=== PATIENT | male | born 1990 | race African-American/Black ===

== ENCOUNTER 2020-11-04 12:21 | Emergency (ER) | payer OTHER, SELFPAY ==
--- NOTE | ~2020-11-04 | XR_ITS ---
EXAMINATION: XR HAND WRIST, RIGHT CLINICAL INFORMATION: Pain thumb. COMPARISON: None TECHNIQUE: The hand and wrist are imaged together in 3 large [id number] images. A navicular view of the wrist is also performed for a total of 4 views. FINDINGS: There is normal bony mineralization. No fracture, dislocation, destructive process. No periostitis. No gas tracking in soft tissues. There is normal ulnar variance. There is no joint narrowing or erosive change. XR/XR hand wrist RT IMPRESSION: No fracture, dislocation, or arthropathy.
[2020-11-04 13:21] VITALS: BP 113/71; PULSE 79; RESP 16; TEMP 36.9; O2SAT 99; BMI 27.4
--- NOTE | 2020-11-04 14:53 | ED_ITS ---
HPI - Extremity Problem General Chief complaint: Extremity Injury, Upper Stated complaint: work injury Time Seen by Provider: 11/04/20 16:00 Source: patient Mode of arrival: ambulatory Limitations: no limitations History of Present Illness HPI Narrative: Patient presents ED for right thumb pain. Patient states he was trying to stop 1 of his behaviors stooling some attacking another patient and he hyperextended his thumb. Patient states present has complete range of motion of thumb negative for any numbness/tingling and just complain of pain. Related Data Previous Rx's Medication Instructions Recorded naproxen 500 mg tablet 500 mg PO BID PRN #20 tab 11/04/20 Allergies Allergy/AdvReac Type Severity Reaction Status Date / Time No Known Allergies Allergy Verified 11/04/20 13:23 Review of Systems Review of Systems: Yes all other systems are reviewed and are negative Constitutional: Constitutional: Reports as per HPI and Reports no additional constitutional complaints Eyes: Eyes: Reports as per HPI and Reports no additional eye complaints ENT: Reports system reviewed and no additional complaints, except as documented and Reports as per HPI Cardiovascular: Cardiovascular: Reports as per HPI and Reports no additional cardiovascular complaints Respiratory: Respiratory: Reports as per HPI and Reports no additional respiratory complaints Gastrointestinal: Gastrointestinal: Reports as per HPI and Reports no additional gastrointestinal complaints Genitourinary: Genitourinary: Reports no additional male genitourinary complaints and Reports as per HPI Musculoskeletal: Musculoskeletal: Reports no additional musculoskeletal complaints and Reports as per HPI Comments: Right thumb pain Neurologic: Reports system reviewed and no additional complaints, except as documented and Reports as per HPI [facility] Past Medical History Medical History (Updated 11/04/20 @ 16:16 by MADDI Turner) No known health problems Social History Social History Advance Directives: Yes Advance Directives Information Provided: Yes Advance Directives on File: No Physical Exam Vital Signs: Vital Signs: Last Vital Signs Temp 98.5 F 11/04/20 13:21 Pulse 79 11/04/20 13:21 Resp 16 11/04/20 13:21 BP 113/71 11/04/20 13:21 Pulse Ox 99 11/04/20 13:21 Body Mass Index 27.4 Const: General: cooperative, healthy appearing, comfortable, no acute distress, well developed, alert and awake Orientation/consciousness: patient oriented x3 HENMT: Head: Yes normal to inspection, Yes No palpable skull fracture present, Yes normocephalic, Yes atraumatic and No abrasion Eyes: General: appearance normal, both eyes and all related structures Neck: Neck: Yes normal visual inspection, Yes full ROM, Yes no lymphadenopathy, Yes no meningeal signs, Yes trachea midline, Yes supple and No tender Chest: Chest palpation & inspection: normal inspection of the chest and normal palpation of entire chest wall Resp: Effort & Inspection: normal respiratory effort and able to speak in complete sentences Cardio: Jugular venous distension: no JVD Heart sounds: S1 normal heart sound present and S2 normal heart sound present GI: Inspection: Yes normal to inspection and No abdominal wall ecchymosis Palpation (GI): Soft to palpation, not firm, nontender, no guarding and not rigid : General: No CVA tenderness and Yes no CVA tenderness Back/Spine/Pelvis: Back: no CVA tenderness, No CVA tenderness and No back tenderness Skin: General skin exam: no rashes or lesions noted and elasticity normal Neuro: General: patient oriented x3, gait normal, no meningeal signs and CN's II-XI intact bilaterally Extrem: General: Yes normal to inspection and Yes full ROM Hand/finger images: 1. Tenderness on palpation. Negative for any limitation on range of motion. Patient has complete range of motion. Negative for any deformities. Capillary refill intact. Motor/neuro/vascular exam intact. Psych: Appearance: grossly normal, well kempt and not disheveled Course Course Course Narrative: Patient was sent for x-ray. Reevaluation(s) Reevaluation #1: X-ray negative for fracture thumb sprain. Patient will follow- up with [facility]. Discharge Plan Discharge Clinical Impression: Sprain of hand, thumb, right Patient Disposition: Home, Self-Care Instructions: Finger Sprain (ED) Additional Instructions: Return to the ED immediately for swelling of thumb, redness, blue smashed in coloration, coolness, hotness, red streaks, or any other concerning symptoms. Please follow-up with PCP for MRI if pain continues. Prescriptions: New naproxen 500 mg tablet 500 mg PO BID PRN (Reason: pain) Qty: 20 RF: 0 Stand Alone Forms: Work/School Release Interventions: ED Discharge Assessment Last Done: 11/04/20 16:36 Discharge Date/Time: 11/04/20 16:37 Print Language: Slovak
== END 2020-11-04 16:37 | disposition home or self-care (01) ==
PROVIDERS: Emergency Provider Emergency Medicine Emergency Medical Services
DX: S63.601A Unspecified sprain of right thumb, initial encounter (principal); X50.1XXA Overexertion from prolonged static or awkward postures, initial encounter; Y93.9 Activity, unspecified; Y92.9 Unspecified place or not applicable; Y99.9 Unspecified external cause status
CPT/HCPCS: 73110; 73130; 99283

== ENCOUNTER → 2020-11-09 09:00 | Outpatient (BNVA) | payer OTHER, SELFPAY | PROVIDERS: Visit Provider Physician Assistant | DX: S66.211A Strain of extensor muscle, fascia and tendon of right thumb at wrist and hand level, initial encounter (principal); X58.XXXA Exposure to other specified factors, initial encounter | CPT/HCPCS: 29125; 99203 ==

== ENCOUNTER → 2020-11-17 15:19 | Outpatient (BNVA) | payer OTHER, SELFPAY | PROVIDERS: Visit Provider Physician Assistant Medical | DX: S63.621A Sprain of interphalangeal joint of right thumb, initial encounter (principal); X58.XXXA Exposure to other specified factors, initial encounter | CPT/HCPCS: 99213 ==

== ENCOUNTER 2020-11-23 14:18 | Outpatient (RCR) | payer OTHER, SELFPAY ==
--- NOTE | 2020-11-23 17:09 | MHC.OT.DC ---
[address] [phone] F: [phone] Occupational Therapy Discharge Note Provider: Lotus Burdick Diagnosis: Right thumb sprain Date of Surgery: Date of Evaluation: 11/23/20 Date of Discharge: Treatments to Date: 1 Cancellations to Date: No Shows to Date: Discharge Status: Improved Function Independent with HEP Discharge Summary: See eval Pt reports comfort with hand based orthosis on for con't thumb MCP jt protection as needed. Skilled OT not needed at this time . Pt to follow up at the [facility] Electronically Signed By: Yuliana Deleon OT CHT CLT Reviewed/agree with student documentation: N/A Therapist: Please Sign and return to therapist, thank you for your referral.
--- NOTE | 2020-12-26 08:36 | MHC.OT.DC ---
[address] [phone] F: [phone] Occupational Therapy Discharge Note Provider: Lotus Burdick Diagnosis: Right thumb sprain Date of Surgery: Date of Evaluation: 11/23/20 Date of Discharge: Treatments to Date: 1 Cancellations to Date: No Shows to Date: Discharge Status: Improved Function Independent with HEP Discharge Summary: See eval Pt reports comfort with hand based orthosis on for con't thumb MCP jt protection as needed. Skilled OT not needed at this time . Pt to follow up at the [facility] Electronically Signed By: Yuliana Deleon OT CHT CLT Reviewed/agree with student documentation: N/A Therapist: Please Sign and return to therapist, thank you for your referral.
== END 2020-12-26 09:52 | disposition home or self-care (01) ==
LOC: HO.OT 14:18
PROVIDERS: Visit Provider Physician Assistant
DX: S63.621D Sprain of interphalangeal joint of right thumb, subsequent encounter (principal)
CPT/HCPCS: 29130; 97165; 97760

== ENCOUNTER → 2020-12-01 15:53 | Outpatient (BNVA) | payer OTHER, SELFPAY | PROVIDERS: Visit Provider Physician Assistant Medical | DX: S63.621D Sprain of interphalangeal joint of right thumb, subsequent encounter (principal); X58.XXXD Exposure to other specified factors, subsequent encounter | CPT/HCPCS: 99213 ==

== ENCOUNTER → 2021-01-06 15:38 | Outpatient (BNVA) | payer OTHER, SELFPAY | PROVIDERS: Visit Provider Physician Assistant | DX: S66.211D Strain of extensor muscle, fascia and tendon of right thumb at wrist and hand level, subsequent encounter (principal); X58.XXXD Exposure to other specified factors, subsequent encounter | CPT/HCPCS: 99213 ==